=== PATIENT | female | born 1980 | race Caucasian/White ===

== ENCOUNTER 2016-11-21 18:50 | Emergency (ER) | payer BC ==
[2016-11-21 18:59] VITALS: BP 120/80; PULSE 103; TEMP 99.1; BMI 25.6
--- NOTE | 2016-11-21 19:08 | PDOC ---
History of Present Illness - General History Source: Patient Exam Limitations: No Limitations - History of Present Illness Initial Comments: 11/21/16 19:18 The patient is a 36 year old female, with no significant past medical history, who presents today complaining of nausea, vomiting, and diarrhea starting at 12pm this afternoon. The patient states that she had 6 episodes of vomiting and 2 episodes of diarrhea today with the most recent episodes occurring around 5pm. She states that she cannot hold any food or water down and is concerned that she was dehydrated. She reports intermittent abdominal pain that feels as though she is getting punched in the stomach. She states that her daughter caught the stomach virus 2 days ago. Denies melena, hematemesis. Denies fever, chills. Denies chest pain, SOB. Allergies: Sulfa, azithromycin, penicillin, amoxicillin. <Phuong Pennington - Last Filed: 11/21/16 19:18> <Ely Bullock - Last Filed: 11/24/16 03:53> - General Chief Complaint: Nausea/Vomiting Stated Complaint: N/V/D Time Seen by Provider: 11/21/16 19:08 Past History <Phuong Pennington - Last Filed: 11/21/16 19:18> - Past Medical History Other medical history: DENIES - Psycho/Social/Smoking Cessation Hx Anxiety: No Suicidal Ideation: No Smoking History: Never smoked Have you smoked in the past 12 months: No Information on smoking cessation initiated: No Hx Alcohol Use: No Drug/Substance Use Hx: No Substance Use Type: None <Ely Bullock - Last Filed: 11/24/16 03:53> - Past Medical History Allergies/Adverse Reactions: Allergies Allergy/AdvReac Type Severity Reaction Status Date / Time amoxicillin Allergy Hives Verified 11/21/16 18:53 Penicillins Allergy Hives Verified 11/21/16 18:53 Sulfa (Sulfonamide Allergy Hives Verified 11/21/16 18:53 Antibiotics) azithromycin AdvReac Vomiting Verified 11/21/16 18:53 Home Medications: Ambulatory Orders Ondansetron [Zofran Odt -] 4 mg SL BID PRN #10 od.tablet 11/21/16 Review of Systems - Review of Systems Able to Perform ROS?: Yes Comments:: 11/21/16 19:18 CONSTITUTIONAL: Absent: fever, no chills, no fatigue EYES: Absent: visual changes ENT: Absent: ear pain, no sore throat CARDIOVASCULAR: Absent: chest pain, no palpitations RESPIRATORY: Absent: cough, no SOB GI: Present: nausea, vomiting, abdominal pain, diarrhea Absent: no constipation GENITOURINARY: Absent: dysuria, no frequency, no hematuria MUSCULOSKELETAL: Absent: back pain, no arthralgia, no myalgia SKIN: Absent: rash NEURO: Absent: headache <Phuong Pennington - Last Filed: 11/21/16 19:18> *Physical Exam - Vital Signs Last Vital Signs Temp Pulse Resp BP Pulse Ox 99.1 F 103 H 20 120/80 97 11/21/16 18:51 11/21/16 18:51 11/21/16 18:51 11/21/16 18:51 11/21/16 18:51 - Physical Exam Comments: 11/21/16 19:19 GENERAL: The patient is awake, alert, and fully oriented, in no acute distress. HEAD: Normal with no signs of trauma. EYES: Pupils equal, round and reactive to light, extraocular movements intact, sclera anicteric, conjunctiva clear with no pallor. ENT: +dry mucous membranes. Ears normal, nares patent, oropharynx clear without exudates. NECK: Normal range of motion, supple without lymphadenopathy, JVD, or masses. LUNGS: Breath sounds equal, clear to auscultation bilaterally. No wheeze/ crackles. HEART: Regular rate and rhythm, normal S1 and S2 without murmur or rub. ABDOMEN: Soft/nontender/nondistended. BS wnl. No guarding or rebound. No palpable masses. No hepatosplenomegaly. EXTREMITIES: Normal range of motion, no edema. No clubbing or cyanosis. No cords, erythema, or tenderness. NEUROLOGICAL: Cranial nerves II through XII grossly intact. Normal speech, normal gait. PSYCH: Normal mood, normal affect. SKIN: Warm, Dry, normal turgor, no rashes or lesions noted. <Phuong Pennington - Last Filed: 11/21/16 19:18> - Vital Signs Last Vital Signs Temp Pulse Resp BP Pulse Ox 99.1 F 103 H 20 120/80 97 11/21/16 18:51 11/21/16 18:51 11/21/16 18:51 11/21/16 18:51 11/21/16 18:51 <Ely Bullock - Last Filed: 11/24/16 03:53> ED Treatment Course - LABORATORY CBC & Chemistry Diagram: 11/21/16 19:20 11/21/16 19:20 <Ely Bullock - Last Filed: 11/24/16 03:53> Progress Note - Progress Note Progress Note: Documentation has been prepared under my direction and personally reviewed by me in its entirety. I attest that this documented accurately reflects all work, treatment, procedures and medical decision making performed by me. <Ely Bullock - Last Filed: 11/24/16 03:53> Medical Decision Making - Medical Decision Making as noted above, this 36-year-old woman with exposure to acute gastroenteritis in her school-aged daughter, presents with nausea/vomiting/diarrhea. Physical exam notable for dry mucous membranes. Patient received 4 mg Zofran IV, 30 mg Toradol IV and 2 L of normal saline IV. laboratory evaluation shows some wbc elevation but otherwise no significant abnormalities Patient felt Significantly better after intravenous medications and IV hydration. She was able to tolerate oral fluids and was discharged home. Prescription for Zofran 4 mg ODT was sent to her pharmacy to be used as needed for recurrent nausea <Ely Bullock - Last Filed: 11/24/16 03:53> *DC/Admit/Observation/Transfer - Attestations Scribe Attestion: 11/21/16 19:19 Documentation prepared by JUJU Clifford, acting as medical examiner for Ely Bullock MD. <Phuong Pennington - Last Filed: 11/21/16 19:18> <lEy Bullock - Last Filed: 11/24/16 03:53> Diagnosis at time of Disposition: Acute gastroenteritis - Discharge Dispostion Disposition: HOME Condition at time of disposition: Stable - Prescriptions Prescriptions: Ondansetron [Zofran Odt -] 4 mg SL BID PRN #10 od.tablet PRN Reason: Nausea - Patient Instructions Printed Discharge Instructions: Viral Gastroenteritis Additional Instructions: clear liquids, advance diet cautiously Zofran ODT 4 mg up to twice a day as needed for nausea return to ER if you have persistent vomiting or worsening pain
[2016-11-21] MEDS ORDERED: SODIUM CHLORIDE 1,000 ML IV STA ×2 (19:17→20:34)
[2016-11-21] MEDS ORDERED: ONDANSETRON 4 MG/2 ML VIAL IVPUSH ONE (19:17)
[2016-11-21 19:42] LABS: MCH 30.5 pg (25.7-33.7); MCHC 34.1 g/dl (32.0-36.0); MEAN CELL VOLUME 89.6 fl (80-96); MEAN PLT VOLUME 7.7 fl (7.5-11.1); PLATELET COUNT 263 K/MM3 (134-434); WHITE BLOOD COUNT 14.1 K/mm3 (4.0-10.0)
[2016-11-21 19:54] LABS: ALBUMIN 4.3 g/dl (3.5-5.0); ALK PHOS 53 U/L (32-92); ANION GAP 8 (8-16); BILIRUBIN,TOTAL 0.9 mg/dl (0.2-1.0); CALCIUM 8.9 mg/dl (8.4-10.2); CO2 24 mmol/L (22-28); CREATININE 0.6 mg/dl (0.6-1.3); GLUCOSE,RANDOM 95 mg/dl (74-106); SGOT/AST 32 U/L (10-42); SGPT/ALT 17 U/L (10-40); TOT PROT 7.6 g/dl (6.4-8.3)
[2016-11-21] MEDS ORDERED: KETOROLAC TROMETHAMINE 30 MG/1 ML VIAL IVPUSH ONE (20:42)
[2016-11-21] MEDS ORDERED: KETOROLAC TROMETHAMINE 30 MG/1 ML VIAL ONE (20:43)
== END 2016-11-21 22:03 | disposition home or self-care (01) ==
LOC: FER 18:50
PROC: 3E0333Z Introduction of Anti-inflammatory into Peripheral Vein, Percutaneous Approach (ICD-10-PCS; principal; 2016-11-21)
PROC: 3E033GC Introduction of Other Therapeutic Substance into Peripheral Vein, Percutaneous Approach (ICD-10-PCS; 2016-11-21)
PROC: 3E0337Z Introduction of Electrolytic and Water Balance Substance into Peripheral Vein, Percutaneous Approach (ICD-10-PCS; 2016-11-21)
DX: K52.9 Noninfective gastroenteritis and colitis, unspecified (principal)
CPT/HCPCS: 36415; 80053; 83690; 85025; 99282-25